=== PATIENT | male | born 1980 | race African-American/Black ===

== ENCOUNTER 2020-11-01 17:19 | Emergency (ER) | payer BC ==
[~2020-11-01] VITALS: Ht 188 cm; Wt 77.1 kg
[2020-11-01 17:24] VITALS: BP 130/70
--- NOTE | 2020-11-01 17:33 | NUR ---
ED Nurse Note: pt presents to ED c/o chest "tightness" onset while he was driving to work this AM. pt states that he had COVID last month and since then has had lingering palpitations but today was the first time he experienced the tightness. pt states that he became suddenly diaphoretic and dizzy but that those symptoms have resolved now. VSS on triage
[2020-11-01 17:42] VITALS: BP 130/70
[2020-11-01 18:08] LABS: APPEARANCE,URINE CLEAR; BILIRUBIN, URINE NEGATIVE (NEGATIVE); GLUCOSE, URINE (UA) NEGATIVE (NEGATIVE); KETONES,URINE NEGATIVE (NEGATIVE); LEUKOCYTE ESTERASE ,URINE NEGATIVE (NEGATIVE); NITRITE,URINE NEGATIVE (NEGATIVE); PH,URINE 5 (4.5-8.0); PROTEIN,URINE NEGATIVE (NEGATIVE); UROBILINOGEN,URINE NORMAL MG/DL (0.0-1.0)
[2020-11-01 18:21] LABS: EOSINOPHILS % (AUTO) 0.5 % (0.0-3.0); HEMATOCRIT 44.2 % (42.0-52.0); HEMOGLOBIN 14.4 G/DL (14.2-18.0); LYMPHOCYTES % (AUTO) 49.1 % (20.0-45.0); MEAN CORPUSCULAR VOLUME 100 FL (80-99); MONOCYTES % (AUTO) 10.4 % (1.0-10.0); PLATELET COUNT 257 K/UL (150-450); RED BLOOD COUNT 4.41 M/UL (4.70-6.10); RED CELL DISTRIBUTION WIDTH 13.3 % (11.6-14.8); WHITE BLOOD COUNT 3.6 K/UL (4.8-10.8)
[2020-11-01 18:26] LABS: ALANINE AMINOTRANSFERASE 27 U/L (12-78); ALBUMIN 3.9 G/DL (3.4-5.0); ALBUMIN/GLOBULIN RATIO 1.1 (1.0-2.7); ALKALINE PHOSPHATASE 68 U/L (46-116); ANION GAP 8 mmol/L (5-15); ASPARTATE AMINO TRANSFERASE 22 U/L (15-37); BILIRUBIN,TOTAL 0.4 MG/DL (0.2-1.0); BLOOD UREA NITROGEN 13 mg/dL (7-18); CALCIUM 9.2 MG/DL (8.5-10.1); CARBON DIOXIDE 28 MMOL/L (21-32); CHLORIDE 103 MMOL/L (98-107); POTASSIUM 3.6 MMOL/L (3.5-5.1); SODIUM 139 MMOL/L (136-145)
[2020-11-01 18:37] LABS: COLOR,URINE YELLOW
--- NOTE | 2020-11-01 18:52 | Emergency Room Report ---
History of Present Illness General Chief Complaint: Chest Pain Source: Patient Present Illness HPI 40-year-old male with recent diagnosis of COVID-19 x1 month with 3 - Covid test in the past week here complaining of sudden onset of chest pain and palpitation that happened while driving earlier today. Also complains of dizziness. Denies any shortness of breath, abdominal pain, nausea vomiting diarrhea. Denies any past medical history. Reports that he is pretty active, denies tobacco smoke and alcohol intake reports that he occasionally smokes marijuana. Has not taken medication for symptom relief. Denies any syncope. Allergies: Coded Allergies: No Known Allergies (Unverified , 11/01/20) COVID-19 Screening Contact w/high risk pt: No Experienced COVID-19 symptoms?: No COVID-19 Testing performed [employer]: Yes COVID-19 Screening: Negative COVID-19 COVID-19 Testing Source: at home Patient History Past Medical History: see triage record Past Surgical History: none Pertinent Family History: none Immunizations: UTD Reviewed Nursing Documentation: PMH: Agreed; PSxH: Agreed Nursing Documentation-PMH Past Medical History: No Stated History Review of Systems All Other Systems: negative except mentioned in HPI Physical Exam Vital Signs Date Time Temp Pulse Resp B/P (MAP) Pulse Ox O2 Delivery O2 Flow Rate FiO2 11/01/20 17:24 98.8 67 18 130/70 (90) 97 Room Air Sp02 EP Interpretation: reviewed, normal General Appearance: no apparent distress, alert, GCS 15, non-toxic Head: normocephalic, atraumatic Eyes: bilateral eye normal inspection, bilateral eye PERRL ENT: hearing grossly normal, normal pharynx, no angioedema, normal voice Neck: full range of motion, supple/symm/no masses Respiratory: chest non-tender, lungs clear, normal breath sounds, speaking full sentences Cardiovascular #1: regular rate, rhythm, no edema Cardiovascular #2: 2+ carotid (R), 2+ carotid (L), 2+ radial (R), 2+ radial (L), 2+ dorsalis pedis (R), 2+ dorsalis pedis (L) Gastrointestinal: normal bowel sounds, non tender, soft, non-distended, no guarding, no rebound Genitourinary: normal inspection, no CVA tenderness Musculoskeletal: back normal Neurologic: alert, motor strength/tone normal, oriented x3, sensory intact, responsive, speech normal Psychiatric: judgement/insight normal, memory normal, mood/affect normal, no suicidal/homicidal ideation Skin: no rash Lymphatic: normal inspection Medical Decision Making PA Attestation All my diagnosis and treatment plans were reviewed ad discussed with my supervising physician Dr. Roblero Diagnostic Impression: Primary Impression: Pericarditis Additional Impression: Dizziness ER Course 40-year-old male with recent diagnosis of COVID-19 x1 month with 3 - Covid test in the past week here complaining of sudden onset of chest pain and palpitation that happened while driving earlier today. Also complains of dizziness. Denies any shortness of breath, abdominal pain, nausea vomiting diarrhea. Denies any past medical history. Reports that he is pretty active, denies tobacco smoke and alcohol intake reports that he occasionally smokes marijuana. Has not taken medication for symptom relief. Denies any syncope. Ddx considered but are not limited to: Dizziness due to alcohol intoxication, dizziness unspecified, dizziness due to head trauma, dizziness secondary to cardiac reasons Vital signs: are WNL, pt. is afebrile H&PE are most consistent with: Pericarditis, dizziness ORDERS: CBC, CMP, troponin, EKG, UA, tox screen, chest x-ray, aspirin, meclizine ER intervention: None DISCHARGE: At this time pt. is stable for d/c to home. Will provide printed patient care instructions, and any necessary prescriptions. Care plan and follow up instructions have been discussed with the patient prior to discharge. 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 Interpretation: no consolidation, no effusion, no pneumothorax Impression: No acute disease Electronically Signed by: Rianna Siu PA-C Last Vital Signs Date Time Temp Pulse Resp B/P (MAP) Pulse Ox O2 Delivery O2 Flow Rate FiO2 11/01/20 17:42 67 18 Room Air 11/01/20 17:42 98.8 130/70 97 Disposition: HOME, SELF-CARE Condition: Stable Scripts Aspirin* (ASPIRIN*) 81 Mg Tab.chew 81 MG ORAL DAILY for Antiplatelet for 30 Days, #30 TAB Prov: Rianna Low 11/01/20 Meclizine Hcl* (MECLIZINE*) 25 Mg Tablet 25 MG ORAL THREE TIMES A DAY, #10 TAB Prov: Rianna Low 11/01/20 Referrals: NON PHYSICIAN (PCP) Patient Instructions: Dizziness, [id number], Nonspecific Chest Pain, Pericarditis Additional Instructions: Take medication as directed, follow-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
[2020-11-01] MEDS ORDERED: ASPIRIN81 MG ORAL (18:54)
[2020-11-01] MEDS ORDERED: MECLIZINE HCL25 MG ORAL (18:54)
--- NOTE | 2020-11-01 19:00 | NUR ---
IV line removed, DC instructions given, explained. Patient left stable ambulatory with steady gait. No pain
--- NOTE | 2020-11-02 09:28 | Diagnostic Imaging Report ---
EXAM: XR Chest, 1 View CLINICAL HISTORY: PAIN TECHNIQUE: Frontal view of the chest. COMPARISON: No relevant prior studies available. FINDINGS: Lungs: Unremarkable. No consolidation. Pleural space: Unremarkable. No pneumothorax. Heart: Unremarkable. No cardiomegaly. Mediastinum: Unremarkable. Bones/joints: Unremarkable. IMPRESSION: No focal infiltrates.
== END 2020-11-01 19:00 | disposition home or self-care (01) ==
LOC: EMR 17:40
DX: I31.9 Disease of pericardium, unspecified (principal); R42 Dizziness and giddiness; F12.90 Cannabis use, unspecified, uncomplicated; Z86.16 Personal history of COVID-19
CPT/HCPCS: 36415; 71045; 80053; 80307; 81003; 84484; 85025; 85379; 93005; 99284